=== PATIENT | female | born 1985 ===

== ENCOUNTER 2024-03-21 18:47 | Outpatient (CLI) | payer MEDICAID, SELFPAY | END 2024-03-21 18:48 | disposition home or self-care (01) | LOC: NFLDREF 03-22 08:20 | PROVIDERS: PCP Physician Assistant; Visit Provider Physician Assistant | DX: N39.0 Urinary tract infection, site not specified (principal); B96.20 Unspecified Escherichia coli [E. coli] as the cause of diseases classified elsewhere | CPT/HCPCS: 87086; 87186 ==